=== PATIENT | female | born 1990 | race Caucasian/White ===

== ENCOUNTER → 2020-11-21 | Outpatient (CLI) | payer BC | END | disposition home or self-care (01) | LOC: PETCFH 09:13 | PROVIDERS: ATTEND Obstetrics & Gynecology | DX: C53.0 Malignant neoplasm of endocervix (principal); R87.810 Cervical high risk human papillomavirus (HPV) DNA test positive | CPT/HCPCS: 78815; A9552 ==

== ENCOUNTER → 2020-12-18 | Outpatient (CLI) | payer BC ==
[~2020-12-18] MED LIST: ACYC-40 PO
[2020-12-18 16:01] LABS: ALANINE AMINOTRANSFERASE 28 U/L (12-78); ALBUMIN 3.6 g/dL (3.4-5.0); ANION GAP 4 mmol/L (5-15); CALCIUM 8.6 mg/dL (8.5-10.1); CHLORIDE 108 mmol/L (98-107); CREATININE 0.78 mg/dL (0.55-1.02)
[2020-12-18 16:05] LABS: ALKALINE PHOSPHATASE 71 U/L (45-117); BILIRUBIN,TOTAL 0.4 mg/dL (0.2-1.0); TOTAL PROTEIN 7.9 g/dL (6.4-8.2)
[2020-12-18 16:07] LABS: BASOPHILS % (AUTO) 0 % (0-1); EOSINOPHILS % (AUTO) 3 % (1-7); LYMPHOCYTES % (AUTO) 31 % (22-44); MEAN CORPUSCULAR HEMOGLOBIN 30.9 pg (27.0-34.8); MEAN CORPUSCULAR HGB CONC 33.2 g/dL (32.4-35.8); MEAN PLATELET VOLUME 10.1 fL (7.4-10.4); MONOCYTES % (AUTO) 5 % (2-9); NEUTROPHILS % (AUTO) 61 % (42-75); PLATELET COUNT 268 x10^3/uL (130-400); RED BLOOD COUNT 4.58 x10^6/uL (3.82-5.3); RED CELL DISTRIBUTION WIDTH 12.9 % (9.6-15.2)
[2020-12-18 16:30] LABS: INTERNATIONAL NORMALIZED RATIO 0.98 (0.93-1.1); PROTHROMBIN TIME 10.5 Seconds (9.6-11.5)
== END | disposition home or self-care (01) ==
LOC: STAR 14:55
PROVIDERS: ATTEND Obstetrics & Gynecology
DX: Z01.812 Encounter for preprocedural laboratory examination (principal); Z20.822 Contact with and (suspected) exposure to COVID-19
CPT/HCPCS: 36415; 80053; 84703; 85025; 85610; 85730; U0003; U0005

== ENCOUNTER 2020-12-23 05:23 | Inpatient (IN) | payer BC ==
[~2020-12-23] VITALS: Ht 172.7 cm; Wt 96.6 kg
[2020-12-23] MEDS ORDERED: CHLORHEXIDINE 15 ML UDC PO ONE (06:30)
[2020-12-23] MEDS ORDERED: CEFOTETAN PMX 2GM/50ML 50 ML IVPB ONE (06:30)
[2020-12-23] MEDS ORDERED: LACTATED RINGERS 1,000 ML IV SCH (06:30)
[2020-12-23 06:48] LABS: HCG UR SG 1.014 (1.003-1.030)
[2020-12-23] MEDS ORDERED: METHYLENE BLUE 50 MG/10 ML AMP ONE (07:06)
[2020-12-23] MEDS ORDERED: HEPARIN 1,000 UNITS/ML, 10ML ONE (07:06)
[2020-12-23] MEDS ORDERED: MIDAZOLAM 1 MG/ML, 2ML ONE (07:13)
[2020-12-23] MEDS ORDERED: FENTANYL PF 250 MCG/5ML ONE (07:14)
[2020-12-23] MEDS ORDERED: PROPOFOL 50 ML ONE ×2 (08:08→10:55)
[2020-12-23] MEDS ORDERED: LIDOCAINE/MPF 2%-EPI 1:200K, 20 ML ONE (08:10)
[2020-12-23] MEDS ORDERED: KETAMINE 10 MG/ML, 20ML ONE ×2 (08:16→08:17)
[2020-12-23] MEDS ORDERED: NALBUPHINE 10 MG/ML, 1ML IVPush PRN (09:30)
[2020-12-23] MEDS ORDERED: OXYcodone 5 MG/5 ML ORAL.SOL UDC PO PRN (09:30)
[2020-12-23] MEDS ORDERED: HYDROmorphone 1 MG/ML, 1ML INJ IVPush PRN (09:30)
[2020-12-23] MEDS ORDERED: ALBUTEROL SULFATE 2.5 MG/3 ML NPPB PRN (09:30)
[2020-12-23] MEDS ORDERED: LORazepam 2 MG/ML, 1ML IVPush PRN (09:30)
[2020-12-23] MEDS ORDERED: FENTANYL PF 100 MCG/2ML IV PRN (09:30)
[2020-12-23] MEDS ORDERED: ACETAMINOPHEN 325 MG TABLET PO PRN ×2 (09:30→12:30)
[2020-12-23] MEDS ORDERED: DO NOT GIVE XX SCH ×2 (09:30)
[2020-12-23] MEDS ORDERED: FENTANYL PF 100 MCG/2ML IVPush PRN (09:30)
[2020-12-23] MEDS ORDERED: MEPERIDINE/PF 25MG/0.5ML IVPush PRN (09:30)
[2020-12-23] MEDS ORDERED: METHOCARBAMOL 1,000 MG in DEXTROSE 5% 100 ML IV PRN (09:30)
[2020-12-23] MEDS ORDERED: PROMETHAZINE 25 MG/ML, 1ML IVPush PRN (09:30)
[2020-12-23] MEDS ORDERED: LABETALOL 5MG/ML, 20ML IV PRN (09:30)
[2020-12-23] MEDS ORDERED: HYDROmorphone/PF 5 MG, BUPIVACAINE/PF 0.5%, 30ML 62.5 ML in SODIUM CHLORIDE 0.9% 182.5 ML EPIDCONT SCH (09:30)
[2020-12-23] MEDS ORDERED: LIDOCAINE-MPF 2% ,5ML ONE (10:58)
[2020-12-23] MEDS ORDERED: ONDANSETRON 2MG/ML, 2ML ONE (12:10)
[2020-12-23] MEDS ORDERED: GLYCOPYRROLATE 0.2MG/1ML, 5ML ONE (12:10)
[2020-12-23] MEDS ORDERED: CEFOTETAN 2 GM ONE (12:10)
[2020-12-23] MEDS ORDERED: NEOSTIGMINE 1 MG/ML, 10ML ONE (12:10)
[2020-12-23] MEDS ORDERED: HYDROmorphone 1 MG/ML, 1ML INJ ONE (12:10)
[2020-12-23] MEDS ORDERED: DEXAMETHASONE 4 MG/ML, 1ML ONE (12:10)
[2020-12-23] MEDS ORDERED: ROCURONIUM 10MG/ML,5ML ONE (12:10)
[2020-12-23] MEDS ORDERED: PROPOFOL 10 MG/ML, 20ML ONE (12:10)
[2020-12-23] MEDS ORDERED: BUPIVACAINE/PF 0.25% ONE (12:12)
[2020-12-23] MEDS ORDERED: KETOROLAC 30 MG/1 ML IV PRN (12:55)
[2020-12-23] MEDS: HYDROmorphone 5 MG, BUPIVACAINE/PF 0.5%, 30ML 62.5 ML in SODIUM CHLORIDE 0.9% 182.5 ML EPIDCONT SCH (13:00)
[2020-12-23] MEDS ORDERED: ONDANSETRON 2MG/ML, 2ML IVPush PRN (13:00)
[2020-12-23] MEDS ORDERED: PROCHLORPERAZINE 5 MG/ML, 2ML IVPush PRN (13:00)
[2020-12-23] MEDS: POTASSIUM CHLORIDE 20 MEQ in D5%-0.45% NACL 1,000 ML IV SCH (17:07)
[2020-12-23] MEDS: ONDANSETRON 2MG/ML, 2ML IVPush PRN (18:36)
[2020-12-23 19:07] VITALS: BP 103/67
[2020-12-23] MEDS: FAMOTIDINE 20 MG/2 ML IV SCH (20:32)
[2020-12-23] MEDS: DIPHENHYDRAMINE 50 MG/ML, 1ML IVPush PRN (20:32)
[2020-12-23] MEDS: SODIUM CHLORIDE FLUSH 10ML SYR IVF SCH (21:00)
[2020-12-24 00:58] VITALS: BP 95/64
[2020-12-24] MEDS: POTASSIUM CHLORIDE 20 MEQ in D5%-0.45% NACL 1,000 ML IV SCH ×3 (02:02→18:29)
[2020-12-24 05:23] LABS: BASOPHILS % (AUTO) 0 % (0-1); EOSINOPHILS % (AUTO) 0 % (1-7); LYMPHOCYTES % (AUTO) 13 % (22-44); MEAN CORPUSCULAR HEMOGLOBIN 30.8 pg (27.0-34.8); MEAN CORPUSCULAR HGB CONC 32.9 g/dL (32.4-35.8); MEAN PLATELET VOLUME 9.9 fL (7.4-10.4); MONOCYTES % (AUTO) 5 % (2-9); NEUTROPHILS % (AUTO) 81 % (42-75); PLATELET COUNT 251 x10^3/uL (130-400); RED BLOOD COUNT 4.13 x10^6/uL (3.82-5.3); RED CELL DISTRIBUTION WIDTH 12.9 % (9.6-15.2)
[2020-12-24 05:31] LABS: ALBUMIN 2.7 g/dL (3.4-5.0); CALCIUM 7.2 mg/dL (8.5-10.1); CHLORIDE 106 mmol/L (98-107)
[2020-12-24 05:34] LABS: ANION GAP 4 mmol/L (5-15); CREATININE 0.84 mg/dL (0.55-1.02)
[2020-12-24 07:10] VITALS: BP 97/63
[2020-12-24] MEDS: SODIUM CHLORIDE FLUSH 10ML SYR IVF SCH ×2 (09:00→19:57)
[2020-12-24] MEDS: FAMOTIDINE 20 MG/2 ML IV SCH ×2 (09:07→20:01)
[2020-12-24] MEDS: ONDANSETRON 2MG/ML, 2ML IVPush PRN (11:19)
[2020-12-24 13:10] VITALS: BP 97/55
[2020-12-24] MEDS: HYDROmorphone 5 MG, BUPIVACAINE/PF 0.5%, 30ML 62.5 ML in SODIUM CHLORIDE 0.9% 182.5 ML EPIDCONT SCH (13:58)
[2020-12-24] MEDS: DIPHENHYDRAMINE 50 MG/ML, 1ML IVPush PRN (17:55)
[2020-12-24] MEDS ORDERED: HYDROmorphone 5 MG, BUPIVACAINE/PF 0.5%, 30ML 62.5 ML in SODIUM CHLORIDE 0.9% 182.5 ML EPIDCONT SCH ×2 (18:00→19:00)
[2020-12-24 19:37] VITALS: BP 100/68
[2020-12-24] MEDS: SCOPOLAMINE 1MG PATCH TD SCH (20:00)
[2020-12-25 00:53] VITALS: BP 94/58
[2020-12-25] MEDS: POTASSIUM CHLORIDE 20 MEQ in D5%-0.45% NACL 1,000 ML IV SCH ×2 (01:15→11:19)
[2020-12-25 06:07] LABS: BASOPHILS % (AUTO) 0 % (0-1); EOSINOPHILS % (AUTO) 1 % (1-7); LYMPHOCYTES % (AUTO) 23 % (22-44); MEAN CORPUSCULAR HEMOGLOBIN 31.5 pg (27.0-34.8); MEAN CORPUSCULAR HGB CONC 33.9 g/dL (32.4-35.8); MONOCYTES % (AUTO) 6 % (2-9); NEUTROPHILS % (AUTO) 70 % (42-75); PLATELET COUNT 203 x10^3/uL (130-400); RED BLOOD COUNT 3.64 x10^6/uL (3.82-5.3); RED CELL DISTRIBUTION WIDTH 12.6 % (9.6-15.2)
[2020-12-25 06:29] VITALS: BP 106/70
[2020-12-25 06:30] LABS: ANION GAP 1 mmol/L (5-15); CALCIUM 7.5 mg/dL (8.5-10.1); CHLORIDE 107 mmol/L (98-107)
[2020-12-25 06:33] LABS: CREATININE 0.63 mg/dL (0.55-1.02)
[2020-12-25 07:04] VITALS: BP 106/68
[2020-12-25] MEDS: FAMOTIDINE 20 MG/2 ML IV SCH ×2 (08:09→22:34)
[2020-12-25] MEDS: SODIUM CHLORIDE FLUSH 10ML SYR IVF SCH ×2 (08:10→22:34)
[2020-12-25] MEDS: ONDANSETRON 2MG/ML, 2ML IVPush PRN (11:44)
[2020-12-25 13:23] VITALS: BP 99/64
[2020-12-25] MEDS ORDERED: HYDROmorphone 5 MG, BUPIVACAINE/PF 0.5%, 30ML 62.5 ML in SODIUM CHLORIDE 0.9% 182.5 ML EPIDCONT SCH (14:00)
[2020-12-25] MEDS: SODIUM CHLORIDE 0.9% 1,000 ML IV SCH (18:17)
[2020-12-25] MEDS: DIPHENHYDRAMINE 50 MG/ML, 1ML IVPush PRN (18:17)
[2020-12-25 20:04] VITALS: BP 103/64
[2020-12-26 00:34] VITALS: BP 105/72
[2020-12-26 03:51] VITALS: BP 98/62
[2020-12-26] MEDS: FAMOTIDINE 20 MG/2 ML IV SCH (07:44)
[2020-12-26] MEDS: SODIUM CHLORIDE 0.9% 1,000 ML IV SCH (07:45)
[2020-12-26] MEDS: ONDANSETRON 2MG/ML, 2ML IVPush PRN (07:45)
[2020-12-26 09:00] VITALS: BP 108/73
[2020-12-26] MEDS: SODIUM CHLORIDE FLUSH 10ML SYR IVF SCH ×2 (09:06→21:41)
[2020-12-26] MEDS ORDERED: SCOPOLAMINE 1MG PATCH TD SCH (09:30)
[2020-12-26] MEDS ORDERED: SCOPOLAMINE 1MG PATCH TD ONE (09:30)
[2020-12-26] MEDS ORDERED: OXYcodone 5 MG/5 ML ORAL.SOL UDC PO PRN (10:30)
[2020-12-26] MEDS: ACETAMINOPHEN 325 MG TABLET PO SCH ×2 (10:57→18:51)
[2020-12-26] MEDS: HYDROmorphone 5 MG, BUPIVACAINE/PF 0.5%, 30ML 62.5 ML in SODIUM CHLORIDE 0.9% 182.5 ML EPIDCONT SCH (15:42)
[2020-12-26 20:07] VITALS: BP 106/71
[2020-12-26] MEDS: FAMOTIDINE 20 MG TABLET PO SCH (21:40)
[2020-12-27] MEDS: ACETAMINOPHEN 325 MG TABLET PO SCH ×4 (01:00→18:14)
[2020-12-27] MEDS: SODIUM CHLORIDE 0.9% 1,000 ML IV SCH ×2 (01:01→12:18)
[2020-12-27] MEDS: HYDROmorphone 5 MG, BUPIVACAINE/PF 0.5%, 30ML 62.5 ML in SODIUM CHLORIDE 0.9% 182.5 ML EPIDCONT SCH (01:34)
[2020-12-27 01:44] VITALS: BP 96/58
[2020-12-27 05:15] LABS: BASOPHILS % (AUTO) 1 % (0-1); EOSINOPHILS % (AUTO) 6 % (1-7); LYMPHOCYTES % (AUTO) 27 % (22-44); MEAN CORPUSCULAR HEMOGLOBIN 31.2 pg (27.0-34.8); MEAN CORPUSCULAR HGB CONC 34.3 g/dL (32.4-35.8); MEAN PLATELET VOLUME 9.6 fL (7.4-10.4); MONOCYTES % (AUTO) 5 % (2-9); NEUTROPHILS % (AUTO) 62 % (42-75); PLATELET COUNT 205 x10^3/uL (130-400); RED BLOOD COUNT 3.46 x10^6/uL (3.82-5.3); RED CELL DISTRIBUTION WIDTH 12.6 % (9.6-15.2)
[2020-12-27 05:25] LABS: ANION GAP 4 mmol/L (5-15); CALCIUM 8.2 mg/dL (8.5-10.1); CHLORIDE 107 mmol/L (98-107); CREATININE 0.49 mg/dL (0.55-1.02)
[2020-12-27 07:30] VITALS: BP 99/62
[2020-12-27] MEDS: FAMOTIDINE 20 MG TABLET PO SCH ×2 (08:10→20:19)
[2020-12-27] MEDS: SODIUM CHLORIDE FLUSH 10ML SYR IVF SCH (08:13)
[2020-12-27] MEDS ORDERED: OXYcodone/APAP 5/325MG TABLET PO PRN (16:00)
[2020-12-27] MEDS: OXYcodone IR 5MG TABLET PO PRN ×2 (16:14→20:20)
[2020-12-27 20:24] VITALS: BP 108/69
[2020-12-27] MEDS: DIPHENHYDRAMINE 50 MG/ML, 1ML IVPush PRN (22:55)
[2020-12-28] MEDS: ACETAMINOPHEN 325 MG TABLET PO SCH ×4 (00:44→18:05)
[2020-12-28 01:00] VITALS: BP 118/70
[2020-12-28] MEDS: ONDANSETRON 2MG/ML, 2ML IVPush PRN (06:25)
[2020-12-28 07:20] VITALS: BP 124/81
[2020-12-28] MEDS: FAMOTIDINE 20 MG TABLET PO SCH ×2 (08:41→20:14)
[2020-12-28] MEDS: SCOPOLAMINE 1MG PATCH TD SCH (09:23)
[2020-12-28] MEDS: OXYcodone IR 5MG TABLET PO PRN (10:58)
[2020-12-28 13:34] VITALS: BP 109/72
[2020-12-28] MEDS: ONDANSETRON ODT 4 MG PO PRN ×2 (16:59→22:57)
[2020-12-28 18:27] VITALS: BP 107/67
[2020-12-28] MEDS ORDERED: PROCHLORPERAZINE 10MG TABLET PO PRN (22:00)
[2020-12-29] MEDS: ACETAMINOPHEN 325 MG TABLET PO SCH ×3 (00:07→11:00)
[2020-12-29 00:08] VITALS: BP 107/69
[2020-12-29 04:38] LABS: BASOPHILS % (AUTO) 1 % (0-1); EOSINOPHILS % (AUTO) 8 % (1-7); LYMPHOCYTES % (AUTO) 24 % (22-44); MEAN CORPUSCULAR HEMOGLOBIN 30.9 pg (27.0-34.8); MEAN CORPUSCULAR HGB CONC 33.9 g/dL (32.4-35.8); MEAN PLATELET VOLUME 9.2 fL (7.4-10.4); MONOCYTES % (AUTO) 6 % (2-9); NEUTROPHILS % (AUTO) 62 % (42-75); PLATELET COUNT 293 x10^3/uL (130-400); RED BLOOD COUNT 3.77 x10^6/uL (3.82-5.3); RED CELL DISTRIBUTION WIDTH 12.6 % (9.6-15.2)
[2020-12-29 04:47] LABS: ANION GAP 3 mmol/L (5-15); CALCIUM 8.4 mg/dL (8.5-10.1); CHLORIDE 109 mmol/L (98-107)
[2020-12-29 04:48] LABS: CREATININE 0.65 mg/dL (0.55-1.02)
[2020-12-29] MEDS: ONDANSETRON ODT 4 MG PO PRN (05:03)
[2020-12-29 06:35] VITALS: BP 106/68
[2020-12-29] MEDS: FAMOTIDINE 20 MG TABLET PO SCH (08:14)
[2020-12-29] MEDS ORDERED: POTASSIUM CHLORIDE 20 MEQ TAB.ER.PRT PO ONE (11:00)
[2020-12-29] MEDS ORDERED: ONDA4TAB13 PO (11:02)
[2020-12-29] MEDS ORDERED: OXYC5TAB98 PO (11:02)
== END 2020-12-29 12:10 | disposition home or self-care (01) | DRG 741 ==
LOC: ORIP 05:23 → 4NE 15:11 → 4NW 12-28 12:45
PROVIDERS: ADMIT Obstetrics & Gynecology; ATTEND Obstetrics & Gynecology
PROC: 0UT70ZZ Resection of Bilateral Fallopian Tubes, Open Approach (ICD-10-PCS; 2020-12-23)
PROC: 0T788DZ Dilation of Bilateral Ureters with Intraluminal Device, Via Natural or Artificial Opening Endoscopic (ICD-10-PCS; 2020-12-23)
PROC: 07BC0ZZ Excision of Pelvis Lymphatic, Open Approach (ICD-10-PCS; 2020-12-23)
PROC: 0UT90ZZ Resection of Uterus, Open Approach (ICD-10-PCS; principal; 2020-12-23 07:30)
PROC: 0US20ZZ Reposition Bilateral Ovaries, Open Approach (ICD-10-PCS; 2020-12-23 07:30)
DX: C53.9 Malignant neoplasm of cervix uteri, unspecified (principal); Z90.710 Acquired absence of both cervix and uterus; G89.18 Other acute postprocedural pain; R11.2 Nausea with vomiting, unspecified
CPT/HCPCS: 36415; 74018; J3490; S0020; 80048; 81025; 82040; 85025; 86850; 86900; 86923; 88305; 88307; 88309; 88342; G0378; J1100; J1170; J1644; J1885; J2250; J2405; J2704; J2710; J3010; J3480; Q0162; Q9968; C1765; C1769; C2617; J0780; J1200; J7030; J7050; J7120